=== PATIENT | male | born 1970 | race Caucasian/White ===

== ENCOUNTER 2018-01-24 09:45 | Emergency (ER) | payer MEDICAID ==
[~2018-01-24] VITALS: Ht 175.3 cm; Wt 100.0 kg
[~2018-01-24 09:45] MED LIST: CHLO25CA10 PO; CLIN-80 PO; DIPH25CA83 PO; HC A30CR11 RC; METH4TAB3 PO; ONDA4TAB6 PO; PRED10TA PO; PROM25TA14 PO
[2018-01-24] MEDS ORDERED: HYDROcodone/acetaminophen 5mg/325mg tablet PO ONE (10:25)
[2018-01-24] MEDS ORDERED: cephalexin 250mg capsule PO ONE (10:25)
[2018-01-24] MEDS ORDERED: LIDOcaine 1.5% w/epinephrine 1:200,000 5ml ampul IJ ONE (10:25)
[2018-01-24] MEDS ORDERED: sulfamethoxazole/trimethoprim DS (800/160mg) tablet PO ONE (10:25)
[2018-01-24] MEDS ORDERED: DOXY100C43 PO (11:24)
[2018-01-24 11:43] VITALS: BP 120/74
== END 2018-01-24 11:45 | disposition home or self-care (01) ==
LOC: ER 09:45
DX: N49.2 Inflammatory disorders of scrotum (principal); F17.210 Nicotine dependence, cigarettes, uncomplicated; F15.10 Other stimulant abuse, uncomplicated; Z59.0 Homelessness; Z56.0 Unemployment, unspecified; Z79.899 Other long term (current) drug therapy
CPT/HCPCS: 55100; 76870; 99284; A6266; A6449; J3490

== ENCOUNTER 2018-05-24 12:52 | Inpatient (IN) | payer MEDICAID ==
[~2018-05-24] VITALS: Ht 175.3 cm; Wt 86.4 kg
[~2018-05-24 12:52] MED LIST changes: -CLIN-80 PO; +CLIN300C85 PO
[2018-05-24] MEDS ORDERED: normal saline 1000ML IV soln IV ONE (13:25)
[2018-05-24] MEDS ORDERED: acetaminophen 325mg tablet PO ONE (13:25)
[2018-05-24 13:41] LABS: BASOPHILS % (AUTO) 0.1 % (0-1); EOSINOPHILS % (AUTO) 0.1 % (0-6); HEMATOCRIT 39.3 % (42.0-52.0); HEMOGLOBIN 13.2 g/dl (14.0-17.9); LYMPHOCYTES # (AUTO) 0.5 X10'3 (1.1-4.8); LYMPHOCYTES % (AUTO) 3.4 % (21-51); MEAN CORPUSCULAR HGB CONC 33.6 % (33.0-36.5); MEAN CORPUSCULAR VOLUME 86.5 FL (78-98); MEAN PLATELET VOLUME 8.1 FL (7.4-10.4); MONOCYTES # (AUTO) 1.5 X10'3 (0-0.9); MONOCYTES % (AUTO) 9.9 % (2-12); NEUTROPHILS # (AUTO) 13.6 X10'3 (1.8-7.7); NEUTROPHILS % (AUTO) 86.5 % (42-75); PLATELET COUNT 201 X10'3 (140-440); RED BLOOD COUNT 4.55 X10'6 (4.70-6.10); RED CELL DISTRIBUTION WIDTH 14.7 % (11.5-14.5); WHITE BLOOD COUNT 15.6 X10'3 (4.5-11.0)
[2018-05-24 13:52] LABS: PARTIAL THROMBOPLASTIN TIME 29 SECONDS (22-32); PROTHROMBIN TIME 10.7 SECONDS (9.0-12.0)
[2018-05-24 13:57] LABS: ALANINE AMINOTRANSFERASE 35 U/L (12-78); ALBUMIN 2.8 G/DL (3.4-5.0); ALBUMIN/GLOBULIN RATIO 0.6 (1.1-1.5); ALKALINE PHOSPHATASE 88 IU/L (46-116); ANION GAP 9 (8-16); ASPARTATE AMINO TRANSFERASE 42 U/L (10-37); BILIRUBIN,TOTAL 0.7 MG/DL (0.1-1.0); BLOOD UREA NITROGEN 31 MG/DL (7-18); BUN/CREATININE RATIO 12.1 (5.4-32.0); CALCIUM 8.5 MG/DL (8.5-10.1); CHLORIDE 89 MMOL/L (99-107); CREATININE 2.57 MG/DL (0.60-1.10); GLUCOSE 110 MG/DL (70-104); SODIUM 126 MMOL/L (135-145); TOTAL CARBON DIOXIDE 27.8 MMOL/L (24-32); TOTAL PROTEIN 7.8 G/DL (6.4-8.2); eGFR 27 ML/MIN
[2018-05-24 14:25] LABS: MAGNESIUM 1.6 MG/DL (1.5-2.4)
[2018-05-24 14:27] LABS: PLATELET ESTIMATE NORMAL; TOTAL CELLS COUNTED 100; TOXIC GRANULATION 1+
[2018-05-24] MEDS ORDERED: ondansetron/PF 4mg/2ml inj IV ONE (14:45)
[2018-05-24] MEDS ORDERED: famotidine/PF 10 mg/ml inj IV ONE (14:45)
[2018-05-24] MEDS ORDERED: azithromycin/NS 500mg/250ml 250 ML IV ONE (14:45)
[2018-05-24] MEDS ORDERED: CefTRIAXone 2gm/D5W 50ml 50 ML IV ONE (14:45)
[2018-05-24] MEDS ORDERED: potassium Cl 40MEQ/NS 500ml 500 ML IV PRN ×2 (15:50)
[2018-05-24] MEDS ORDERED: docusate sod 100mg capsule PO PRN (15:50)
[2018-05-24] MEDS ORDERED: ondansetron/PF 4mg/2ml inj IV PRN (15:50)
[2018-05-24] MEDS ORDERED: diphenhydrAMINE 50 mg/ml inj IV PRN (15:50)
[2018-05-24] MEDS ORDERED: ipratropium/albuterol 3ml nebule NEB PRN (15:50)
[2018-05-24] MEDS ORDERED: acetaminophen 325mg tablet PO PRN (15:50)
[2018-05-24] MEDS ORDERED: mag hydrox/Alum hydrox/simeth 30ml oral suspension PO PRN (15:50)
[2018-05-24] MEDS ORDERED: magnesium 1gm/100ml D5W IVPB 100 ML IV PRN (15:50)
[2018-05-24] MEDS ORDERED: magnesium 4gm in 100ml NS 100 ML IV PRN (15:50)
[2018-05-24] MEDS ORDERED: LORazepam 2 mg/ml vial IV PRN (16:10)
[2018-05-24] MEDS ORDERED: haloperidol 5mg tablet PO PRN (16:10)
[2018-05-24] MEDS ORDERED: thiamine inj. 100 MG in normal saline 100ml IV soln 100 ML IV ONE (16:10)
[2018-05-24] MEDS ORDERED: haloperidol lactate 5mg/ml inj IM PRN (16:10)
[2018-05-24 16:50] VITALS: BP 111/66
[2018-05-24] MEDS ORDERED: METH-603 PO (17:18)
[2018-05-24] MEDS: vancomycin/NS 1 GM ADD-VANTAGE 250 ML IV SCH ×2 (17:40→20:59)
[2018-05-24] MEDS: cefepime 1GM/NS ADD-VANTAGE 100 ML IV SCH (20:01)
[2018-05-24] MEDS: normal saline 1000ml 1,000 ML IV SCH (20:49)
[2018-05-24] MEDS: potassium 10mEq/100ml NS w/LIDOcaine (10mg/bag) IV SCH ×2 (21:00→22:06)
[2018-05-24 22:00] VITALS: BP 78/56
[2018-05-25] MEDS: cefepime 1GM/NS ADD-VANTAGE 100 ML IV SCH ×4 (00:10→23:28)
[2018-05-25] MEDS: normal saline 1000ml 1,000 ML IV SCH ×6 (00:15→19:24)
[2018-05-25 02:00] VITALS: BP 104/62
[2018-05-25 06:00] VITALS: BP 104/65
[2018-05-25] MEDS: nicotine 14mg patch - 24hr TD SCH (07:57)
[2018-05-25] MEDS: enoxaparin 40mg/0.4ml syringe SQ SCH (07:58)
[2018-05-25] MEDS: K and/or MAG REPLACEMENT MC SCH (07:59)
[2018-05-25] MEDS ORDERED: folic acid inj. 2 MG, thiamine inj. 100 MG, MVI, adult No.4 with vit. K 10 ML in dextro... IV SCH ×4 (08:00)
[2018-05-25 09:37] LABS: BASOPHILS % (AUTO) 0.1 % (0-1); EOSINOPHILS % (AUTO) 0 % (0-6); HEMATOCRIT 38.1 % (42.0-52.0); HEMOGLOBIN 12.7 g/dl (14.0-17.9); LYMPHOCYTES # (AUTO) 0.5 X10'3 (1.1-4.8); MEAN CORPUSCULAR HEMOGLOBIN 28.9 PG (27.0-31.0); MEAN CORPUSCULAR HGB CONC 33.3 % (33.0-36.5); MEAN CORPUSCULAR VOLUME 86.9 FL (78-98); MEAN PLATELET VOLUME 8.4 FL (7.4-10.4); MONOCYTES # (AUTO) 0.3 X10'3 (0-0.9); MONOCYTES % (AUTO) 2.9 % (2-12); NEUTROPHILS # (AUTO) 8.2 X10'3 (1.8-7.7); PLATELET COUNT 150 X10'3 (140-440); RED BLOOD COUNT 4.38 X10'6 (4.70-6.10); RED CELL DISTRIBUTION WIDTH 14.8 % (11.5-14.5)
[2018-05-25 09:46] LABS: INR 1.1 INR; PROTHROMBIN TIME 10.9 SECONDS (9.0-12.0)
[2018-05-25 09:51] LABS: ALANINE AMINOTRANSFERASE 27 U/L (12-78); ALBUMIN/GLOBULIN RATIO 0.4 (1.1-1.5); ALKALINE PHOSPHATASE 65 IU/L (46-116); AMYLASE 21 U/L (25-115); ANION GAP 9 (8-16); ASPARTATE AMINO TRANSFERASE 40 U/L (10-37); BILIRUBIN,TOTAL 0.5 MG/DL (0.1-1.0); BLOOD UREA NITROGEN 41 MG/DL (7-18); BUN/CREATININE RATIO 13.8 (5.4-32.0); CALCIUM 8.1 MG/DL (8.5-10.1); CHLORIDE 98 MMOL/L (99-107); CREATININE 2.98 MG/DL (0.60-1.10); GLUCOSE 94 MG/DL (70-104); LIPASE 77 U/L (73-393); MAGNESIUM 1.7 MG/DL (1.5-2.4); PHOSPHORUS 3.7 MG/DL (2.3-4.5); POTASSIUM 3.5 MMOL/L (3.5-5.1); SODIUM 132 MMOL/L (135-145); TOTAL CARBON DIOXIDE 25.4 MMOL/L (24-32); TOTAL PROTEIN 6.5 G/DL (6.4-8.2); eGFR 23 ML/MIN
[2018-05-25 10:50] LABS: TOTAL CELLS COUNTED 100
[2018-05-25 10:51] LABS: PLATELET ESTIMATE NORMAL
[2018-05-25 10:52] LABS: TOXIC GRANULATION 1+; TOXIC VACUOLATION FEW
[2018-05-25 11:00] VITALS: BP 105/70
[2018-05-25] MEDS: methadone 10mg tablet PO SCH (12:19)
[2018-05-25 15:00] VITALS: BP 103/68
[2018-05-25] MEDS: vancomycin inj 1,250 MG in normal saline 250ml IV soln 250 ML IV SCH (16:21)
[2018-05-25 19:14] VITALS: BP 101/66
[2018-05-25] MEDS: lactobacillus rhamnosus 10,000 MMU CELLS/CAPSULE PO SCH (19:24)
[2018-05-25 23:45] VITALS: BP 130/62
[2018-05-26 02:30] VITALS: BP 105/74
[2018-05-26] MEDS: normal saline 1000ml 1,000 ML IV SCH ×5 (02:49→22:22)
[2018-05-26 06:00] VITALS: BP 117/68
[2018-05-26 06:44] LABS: BASOPHILS % (AUTO) 0.3 % (0-1); EOSINOPHILS % (AUTO) 0.6 % (0-6); HEMATOCRIT 33.8 % (42.0-52.0); HEMOGLOBIN 11.5 g/dl (14.0-17.9); LYMPHOCYTES # (AUTO) 0.9 X10'3 (1.1-4.8); LYMPHOCYTES % (AUTO) 14.6 % (21-51); MEAN CORPUSCULAR HEMOGLOBIN 29.5 PG (27.0-31.0); MEAN PLATELET VOLUME 8.2 FL (7.4-10.4); MONOCYTES # (AUTO) 0.5 X10'3 (0-0.9); MONOCYTES % (AUTO) 8.6 % (2-12); NEUTROPHILS % (AUTO) 75.9 % (42-75); PLATELET COUNT 191 X10'3 (140-440); RED BLOOD COUNT 3.89 X10'6 (4.70-6.10); RED CELL DISTRIBUTION WIDTH 15.5 % (11.5-14.5); WHITE BLOOD COUNT 6.4 X10'3 (4.5-11.0)
[2018-05-26 06:53] LABS: PROTHROMBIN TIME 10.4 SECONDS (9.0-12.0)
[2018-05-26 06:58] LABS: ALANINE AMINOTRANSFERASE 26 U/L (12-78); ALBUMIN 1.6 G/DL (3.4-5.0); ALBUMIN/GLOBULIN RATIO 0.4 (1.1-1.5); ALKALINE PHOSPHATASE 57 IU/L (46-116); AMYLASE 32 U/L (25-115); ANION GAP 9 (8-16); ASPARTATE AMINO TRANSFERASE 45 U/L (10-37); BILIRUBIN,TOTAL 0.4 MG/DL (0.1-1.0); BLOOD UREA NITROGEN 41 MG/DL (7-18); BUN/CREATININE RATIO 16.3 (5.4-32.0); CALCIUM 7.6 MG/DL (8.5-10.1); CHLORIDE 102 MMOL/L (99-107); CREATININE 2.51 MG/DL (0.60-1.10); GLUCOSE 128 MG/DL (70-104); LIPASE 196 U/L (73-393); MAGNESIUM 1.7 MG/DL (1.5-2.4); PHOSPHORUS 2.9 MG/DL (2.3-4.5); SODIUM 134 MMOL/L (135-145); TOTAL CARBON DIOXIDE 22.9 MMOL/L (24-32); TOTAL PROTEIN 5.5 G/DL (6.4-8.2); eGFR 28 ML/MIN
[2018-05-26 07:08] LABS: POTASSIUM 2.7 MMOL/L (3.5-5.1)
[2018-05-26] MEDS: potassium Cl 20 mEq SR tablet PO PRN ×3 (07:46→17:52)
[2018-05-26] MEDS: methadone 10mg tablet PO SCH (07:53)
[2018-05-26] MEDS: K and/or MAG REPLACEMENT MC SCH (08:00)
[2018-05-26] MEDS: nicotine 14mg patch - 24hr TD SCH (08:00)
[2018-05-26] MEDS: enoxaparin 40mg/0.4ml syringe SQ SCH (08:00)
[2018-05-26] MEDS: cefepime 1GM/NS ADD-VANTAGE 100 ML IV SCH ×3 (10:55→23:36)
[2018-05-26] MEDS: lactobacillus rhamnosus 10,000 MMU CELLS/CAPSULE PO SCH ×2 (10:55→19:51)
[2018-05-26 11:00] VITALS: BP 115/76
[2018-05-26] MEDS: thiamine 100mg tablet PO SCH (11:34)
[2018-05-26] MEDS: multivitamins, therapeutics tablet PO SCH (11:34)
[2018-05-26] MEDS ORDERED: HYDROcodone/acetaminophen 5mg/325mg tablet PO PRN (12:00)
[2018-05-26 15:00] VITALS: BP 109/79
[2018-05-26] MEDS ORDERED: LORazepam 2 mg/ml vial IV PRN (16:10)
[2018-05-26] MEDS ORDERED: LORazepam 1 MG tablet PO PRN (16:10)
[2018-05-26] MEDS: vancomycin inj 1,250 MG in normal saline 250ml IV soln 250 ML IV SCH (16:53)
[2018-05-26 18:30] VITALS: BP 117/79
[2018-05-26] MEDS: folic acid 1mg tablet PO SCH (19:51)
[2018-05-26 23:00] VITALS: BP 113/78
[2018-05-27 02:00] VITALS: BP 126/82
[2018-05-27] MEDS: normal saline 1000ml 1,000 ML IV SCH ×5 (03:30→22:32)
[2018-05-27 06:00] VITALS: BP 116/74
[2018-05-27 06:41] LABS: HEMATOCRIT 37.2 % (42.0-52.0); HEMOGLOBIN 12.5 g/dl (14.0-17.9); MEAN CORPUSCULAR HEMOGLOBIN 29.7 PG (27.0-31.0); MEAN CORPUSCULAR HGB CONC 33.7 % (33.0-36.5); MEAN CORPUSCULAR VOLUME 88.2 FL (78-98); MEAN PLATELET VOLUME 7.6 FL (7.4-10.4); PLATELET COUNT 257 X10'3 (140-440); RED BLOOD COUNT 4.22 X10'6 (4.70-6.10); RED CELL DISTRIBUTION WIDTH 16.7 % (11.5-14.5); WHITE BLOOD COUNT 6.7 X10'3 (4.5-11.0)
[2018-05-27 06:48] LABS: PROTHROMBIN TIME 10.1 SECONDS (9.0-12.0)
[2018-05-27 06:55] LABS: ALANINE AMINOTRANSFERASE 38 U/L (12-78); ALBUMIN 1.8 G/DL (3.4-5.0); ALBUMIN/GLOBULIN RATIO 0.4 (1.1-1.5); ALKALINE PHOSPHATASE 63 IU/L (46-116); AMYLASE 48 U/L (25-115); ANION GAP 8 (8-16); ASPARTATE AMINO TRANSFERASE 57 U/L (10-37); BILIRUBIN,TOTAL 0.3 MG/DL (0.1-1.0); BLOOD UREA NITROGEN 34 MG/DL (7-18); BUN/CREATININE RATIO 16.1 (5.4-32.0); CALCIUM 8.2 MG/DL (8.5-10.1); CHLORIDE 106 MMOL/L (99-107); CREATININE 2.11 MG/DL (0.60-1.10); GLUCOSE 94 MG/DL (70-104); LIPASE 170 U/L (73-393); MAGNESIUM 1.7 MG/DL (1.5-2.4); PHOSPHORUS 3.8 MG/DL (2.3-4.5); POTASSIUM 3.4 MMOL/L (3.5-5.1); SODIUM 137 MMOL/L (135-145); TOTAL PROTEIN 6.1 G/DL (6.4-8.2); eGFR 34 ML/MIN
[2018-05-27] MEDS: enoxaparin 40mg/0.4ml syringe SQ SCH (07:48)
[2018-05-27] MEDS: K and/or MAG REPLACEMENT MC SCH (07:49)
[2018-05-27] MEDS: nicotine 14mg patch - 24hr TD SCH (07:49)
[2018-05-27 07:51] LABS: ANISOCYTOSIS 1+; PLATELET ESTIMATE NORMAL; TOTAL CELLS COUNTED 100
[2018-05-27 07:52] LABS: TOXIC GRANULATION 1+
[2018-05-27] MEDS: multivitamins, therapeutics tablet PO SCH (07:58)
[2018-05-27] MEDS: folic acid 1mg tablet PO SCH ×2 (07:58→20:35)
[2018-05-27] MEDS: lactobacillus rhamnosus 10,000 MMU CELLS/CAPSULE PO SCH ×2 (07:58→20:35)
[2018-05-27] MEDS: methadone 10mg tablet PO SCH (07:58)
[2018-05-27] MEDS: thiamine 100mg tablet PO SCH (07:58)
[2018-05-27] MEDS: cefepime 1GM/NS ADD-VANTAGE 100 ML IV SCH ×2 (07:59→15:43)
[2018-05-27] MEDS: potassium Cl 20 mEq SR tablet PO PRN ×2 (10:21→15:43)
[2018-05-27 11:00] VITALS: BP 138/92
[2018-05-27 15:00] VITALS: BP 131/77
[2018-05-27] MEDS: vancomycin inj 1,250 MG in normal saline 250ml IV soln 250 ML IV SCH (16:23)
[2018-05-27 18:00] VITALS: BP 129/76
[2018-05-27] MEDS ORDERED: potassium Cl 20 mEq SR tablet PO PRN ×2 (20:10)
[2018-05-27] MEDS ORDERED: magnesium Cl slow-release 64mg tablet PO PRN (20:10)
[2018-05-27] MEDS ORDERED: magnesium 4gm in 100ml NS 100 ML IV PRN (20:10)
[2018-05-27] MEDS ORDERED: potassium Cl 40MEQ/NS 500ml 500 ML IV PRN ×2 (20:10)
[2018-05-27 22:00] VITALS: BP 136/76
[2018-05-28] MEDS: cefepime 1GM/NS ADD-VANTAGE 100 ML IV SCH ×2 (00:06→07:35)
[2018-05-28 02:00] VITALS: BP 145/88
[2018-05-28] MEDS: normal saline 1000ml 1,000 ML IV SCH (04:57)
[2018-05-28 06:54] LABS: BASOPHILS % (AUTO) 0.4 % (0-1); EOSINOPHILS # (AUTO) 0.3 X10'3 (0-0.9); EOSINOPHILS % (AUTO) 3.1 % (0-6); HEMATOCRIT 33.9 % (42.0-52.0); HEMOGLOBIN 11.6 g/dl (14.0-17.9); LYMPHOCYTES # (AUTO) 1.2 X10'3 (1.1-4.8); MEAN CORPUSCULAR HEMOGLOBIN 29.4 PG (27.0-31.0); MEAN CORPUSCULAR HGB CONC 34.2 % (33.0-36.5); MEAN CORPUSCULAR VOLUME 86.1 FL (78-98); MEAN PLATELET VOLUME 7.6 FL (7.4-10.4); MONOCYTES # (AUTO) 0.7 X10'3 (0-0.9); MONOCYTES % (AUTO) 8.7 % (2-12); NEUTROPHILS % (AUTO) 72.8 % (42-75); PLATELET COUNT 280 X10'3 (140-440); RED BLOOD COUNT 3.93 X10'6 (4.70-6.10); RED CELL DISTRIBUTION WIDTH 17.1 % (11.5-14.5); WHITE BLOOD COUNT 8.3 X10'3 (4.5-11.0)
[2018-05-28 07:11] LABS: ALANINE AMINOTRANSFERASE 39 U/L (12-78); ALBUMIN 1.7 G/DL (3.4-5.0); ALBUMIN/GLOBULIN RATIO 0.4 (1.1-1.5); ALKALINE PHOSPHATASE 61 IU/L (46-116); AMYLASE 51 U/L (25-115); ANION GAP 8 (8-16); ASPARTATE AMINO TRANSFERASE 47 U/L (10-37); BILIRUBIN,TOTAL 0.3 MG/DL (0.1-1.0); BLOOD UREA NITROGEN 28 MG/DL (7-18); BUN/CREATININE RATIO 15.4 (5.4-32.0); CALCIUM 7.9 MG/DL (8.5-10.1); CHLORIDE 109 MMOL/L (99-107); CREATININE 1.82 MG/DL (0.60-1.10); GLUCOSE 94 MG/DL (70-104); LIPASE 158 U/L (73-393); MAGNESIUM 1.5 MG/DL (1.5-2.4); PHOSPHORUS 3.8 MG/DL (2.3-4.5); POTASSIUM 3.9 MMOL/L (3.5-5.1); SODIUM 140 MMOL/L (135-145); TOTAL CARBON DIOXIDE 22.8 MMOL/L (24-32); TOTAL PROTEIN 5.8 G/DL (6.4-8.2); eGFR 40 ML/MIN
[2018-05-28 07:20] LABS: PROTHROMBIN TIME 10.7 SECONDS (9.0-12.0)
[2018-05-28] MEDS: lactobacillus rhamnosus 10,000 MMU CELLS/CAPSULE PO SCH (07:33)
[2018-05-28] MEDS: thiamine 100mg tablet PO SCH (07:33)
[2018-05-28] MEDS: folic acid 1mg tablet PO SCH (07:33)
[2018-05-28] MEDS: multivitamins, therapeutics tablet PO SCH (07:33)
[2018-05-28] MEDS: methadone 10mg tablet PO SCH (07:33)
[2018-05-28] MEDS: enoxaparin 40mg/0.4ml syringe SQ SCH (07:34)
[2018-05-28] MEDS: nicotine 14mg patch - 24hr TD SCH (07:34)
[2018-05-28 07:46] VITALS: BP 151/90
[2018-05-28] MEDS: K and/or MAG REPLACEMENT MC SCH (08:00)
[2018-05-28] MEDS ORDERED: LEVO750T21 PO (09:20)
[2018-05-28] MEDS ORDERED: VANCOMYCIN LEVEL IV NR (15:30)
[2018-05-28] MEDS ORDERED: LORazepam 2 mg/ml vial IV PRN (16:10)
[2018-05-28] MEDS ORDERED: LORazepam 1 MG tablet PO PRN (16:10)
== END 2018-05-28 11:00 | disposition home or self-care (01) | DRG 720 ==
LOC: ER 12:53 → ED HOLD 15:49 → CANBEDREQ 16:39 → PCU 3S 17:40
PROVIDERS: ADMIT Family Medicine; ATTEND Internal Medicine
DX: A41.9 Sepsis, unspecified organism (principal); E43 Unspecified severe protein-calorie malnutrition; J18.9 Pneumonia, unspecified organism; N17.9 Acute kidney failure, unspecified; E86.0 Dehydration; E87.1 Hypo-osmolality and hyponatremia; F19.10 Other psychoactive substance abuse, uncomplicated; F10.20 Alcohol dependence, uncomplicated; R65.20 Severe sepsis without septic shock; E87.6 Hypokalemia; F17.200 Nicotine dependence, unspecified, uncomplicated; Z71.6 Tobacco abuse counseling; Z71.41 Alcohol abuse counseling and surveillance of alcoholic; Z59.0 Homelessness; Z83.3 Family history of diabetes mellitus; Z86.19 Personal history of other infectious and parasitic diseases; Y90.9 Presence of alcohol in blood, level not specified; Z68.28 Body mass index [BMI] 28.0-28.9, adult
CPT/HCPCS: 36415; 70450; 71045; 71250; 80053; 82150; 83605; 83690; 83735; 84100; 84132; 84145; 85025; 85610; 85730; 87040; 87070; 93005; 93306; 94760; 96374; 96375; 99285; A6212; J0456; J0692; J0696; J1650; J2060; J2405; J3370; J3411; J3480; J3490; J7030; J7060

== ENCOUNTER 2018-10-29 12:49 | Emergency (ER) | payer MEDICAID ==
[~2018-10-29] VITALS: Ht 175.3 cm; Wt 102.0 kg
[~2018-10-29 12:49] MED LIST changes: -CHLO25CA10 PO; -CLIN300C85 PO; -DIPH25CA83 PO; -HC A30CR11 RC; +METH-603 PO; -METH4TAB3 PO; -ONDA4TAB6 PO; -PRED10TA PO; -PROM25TA14 PO
[2018-10-29 13:46] LABS: BASOPHILS % (AUTO) 0.6 % (0-1); EOSINOPHILS % (AUTO) 0.1 % (0-6); HEMATOCRIT 45.5 % (42.0-52.0); HEMOGLOBIN 15.5 g/dl (14.0-17.9); LYMPHOCYTES # (AUTO) 1.7 X10'3 (1.1-4.8); LYMPHOCYTES % (AUTO) 37.8 % (21-51); MEAN CORPUSCULAR HEMOGLOBIN 31.4 PG (27.0-31.0); MEAN CORPUSCULAR HGB CONC 34.2 % (33.0-36.5); MEAN PLATELET VOLUME 7.3 FL (7.4-10.4); MONOCYTES # (AUTO) 0.7 X10'3 (0-0.9); MONOCYTES % (AUTO) 15.8 % (2-12); NEUTROPHILS # (AUTO) 2.1 X10'3 (1.8-7.7); NEUTROPHILS % (AUTO) 45.7 % (42-75); PLATELET COUNT 173 X10'3 (140-440); RED BLOOD COUNT 4.94 X10'6 (4.70-6.10); RED CELL DISTRIBUTION WIDTH 13.5 % (11.5-14.5); WHITE BLOOD COUNT 4.5 X10'3 (4.5-11.0)
[2018-10-29] MEDS ORDERED: ipratropium/albuterol 3ml nebule NEB ONE (13:55)
[2018-10-29] MEDS ORDERED: GUAI120015 PO (13:57)
[2018-10-29] MEDS ORDERED: DOXY100C43 PO (13:57)
[2018-10-29] MEDS ORDERED: AZIT250T2 PO (13:57)
[2018-10-29 14:08] LABS: ALANINE AMINOTRANSFERASE 302 U/L (12-78); ALBUMIN 4.3 G/DL (3.4-5.0); ALBUMIN/GLOBULIN RATIO 0.8 (1.1-1.5); ALKALINE PHOSPHATASE 79 IU/L (46-116); ANION GAP 10 (8-16); ASPARTATE AMINO TRANSFERASE 320 U/L (10-37); BILIRUBIN,TOTAL 0.3 MG/DL (0.1-1.0); BLOOD UREA NITROGEN 13 MG/DL (7-18); BUN/CREATININE RATIO 11.2 (5.4-32.0); CALCIUM 8.9 MG/DL (8.5-10.1); CHLORIDE 96 MMOL/L (99-107); CREATININE 1.16 MG/DL (0.60-1.10); GLUCOSE 83 MG/DL (70-104); POTASSIUM 4.4 MMOL/L (3.5-5.1); SODIUM 132 MMOL/L (135-145); TOTAL PROTEIN 9.7 G/DL (6.4-8.2); eGFR 67 ML/MIN
[2018-10-29 14:34] VITALS: BP 140/79
== END 2018-10-29 14:47 | disposition home or self-care (01) ==
LOC: ER 12:50
DX: J40 Bronchitis, not specified as acute or chronic (principal); R00.0 Tachycardia, unspecified; E11.9 Type 2 diabetes mellitus without complications; F15.90 Other stimulant use, unspecified, uncomplicated; F11.90 Opioid use, unspecified, uncomplicated; Z79.899 Other long term (current) drug therapy; Z87.19 Personal history of other diseases of the digestive system; Z56.0 Unemployment, unspecified; Z59.0 Homelessness
CPT/HCPCS: 36415; 71046; 80053; 83605; 85025; 87040; 94640; 94760; 99284